=== PATIENT | female | born 1995 | race Caucasian/White ===

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

== ENCOUNTER → 2017-01-02 | Outpatient (CLI) | payer OTHER ==
[2017-01-02 16:26] LABS: PREG INTERNAL NEGATIVE QC NEG CLEAR BACKGROUND; PREG INTERNAL POSITIVE QC POS CONTROL LINE
[2017-01-02 16:35] LABS: URINE APPEARANCE TURBID (CLEAR); URINE BILIRUBIN NEG (NEG); URINE COLOR YELLOW; URINE EPITHELIAL CELL AUTO >30 /lpf (0-5); URINE NITRITE NEG (NEG); URINE SPECIFIC GRAVITY 1.026 (1.000-1.030); UROBILINOGEN NEG (NEG); ZZUR CULT IF INDIC CLEAN CATCH YES
[2017-01-02 16:46] LABS: MANUAL MICROSCOPIC REQUIRED? NO; REVIEW REQ? NO
== END | disposition home or self-care (01) ==
LOC: C.LABSPEC 15:33
PROVIDERS: ATTEND Physician Assistant
DX: N91.2 Amenorrhea, unspecified (principal); R35.0 Frequency of micturition

== ENCOUNTER → 2017-09-17 | Outpatient (CLI) | payer OTHER | END | disposition home or self-care (01) | LOC: C.LABSPEC 13:34 | PROVIDERS: ATTEND Obstetrics & Gynecology | DX: Z34.81 Encounter for supervision of other normal pregnancy, first trimester (principal) ==

== ENCOUNTER → 2017-09-28 | Outpatient (CLI) | payer OTHER ==
[~2017-09-28] MED LIST changes: +ACET-1256 PO; +CALC500C3 PO; -MELA1TAB4
[2017-09-28 15:27] LABS: BASO % 0.6 %; BASO ABS # 0.05 K/uL (0-0.2); EOS % 0.7 %; EOS ABS # 0.06 K/uL (0-0.5); HEMATOCRIT 38.3 % (37-47); HEMOGLOBIN 13.3 g/dL (12.0-16.0); IG# 0.03 K/uL (0.00-0.02); LYMPH ABS # 2.29 K/uL (1.2-3.4); MEAN CELL VOLUME 87.8 fL (80-100); MEAN CORPUSCULAR HEMOGLOBIN 30.5 pg (25-34); MEAN CORPUSCULAR HGB CONC 34.7 g/dl (32-36); MEAN PLATELET VOLUME 10.6 fL (7.4-10.4); MONO % 8.5 %; MONO ABS # 0.72 K/uL (0.11-0.59); NEUT % 62.8 %; NEUT ABS # 5.33 K/uL (1.4-6.5); PLATELET COUNT 299 K/uL (130-400); RED CELL DISTRIBUTION WIDTH CV 13.1 % (11.5-14.5); RED CELL DISTRIBUTION WIDTH SD 42.1 fL (36.4-46.3); WHITE BLOOD COUNT 8.48 K/uL (4.8-10.8)
== END | disposition home or self-care (01) ==
LOC: C.LAB1850 13:43
PROVIDERS: ATTEND Obstetrics & Gynecology
DX: Z34.81 Encounter for supervision of other normal pregnancy, first trimester (principal)

== ENCOUNTER 2017-10-01 09:24 | Day surgery (SDC) | payer OTHER ==
[~2017-10-01] VITALS: Ht 152.4 cm; Wt 70.9 kg
[~2017-10-01 09:24] MED LIST changes: -ACET-1256 PO; -CALC500C3 PO; +DOXYCYCLINE HYCLATE 100 MG CAP PO SCH; +LACTATED RINGER'S 1000ML 1,000 ML IV SCH; -PRENTAB26 PO
[2017-10-01] MEDS ORDERED: ACET-1256 PO ×2 (09:46)
[2017-10-01] MEDS ORDERED: PRENTAB26 PO ×2 (09:46)
[2017-10-01] MEDS ORDERED: CALC500C3 PO ×2 (09:46)
[2017-10-01 09:53] VITALS: BP 115/82; PULSE 100; TEMP 36.8; O2SAT 99; Ht 152.4 cm; Wt 70.9 kg
[2017-10-01] MEDS ORDERED: ONDANSETRON INJ 2 MG/ML 2 ML VIAL ONE ×2 (10:38→11:37)
[2017-10-01] MEDS ORDERED: NURSING VERBAL MED ORDER ONE (10:40)
[2017-10-01] MEDS ORDERED: PROPOFOL IV EMULSION 10 MG/ML 20 ML VIAL IV ONE (11:37)
[2017-10-01] MEDS ORDERED: LIDOCAINE HCL 2% 2 ML VIAL (20MG/ML) ONE (11:37)
[2017-10-01] MEDS ORDERED: FENTANYL CITRATE INJ 50 MCG/1 ML 2 ML VIAL ONE (11:37)
[2017-10-01] MEDS ORDERED: SUCCINYLCHOLINE CHLORIDE 20 MG/ML 10 ML VIAL IV ONE (11:37)
[2017-10-01] MEDS ORDERED: DEXAMETHASONE SOD INJ 4 MG/ML VIAL ONE (11:37)
[2017-10-01] MEDS ORDERED: MIDAZOLAM HCL 1 MG/ML 2ML VIAL ONE (11:37)
[2017-10-01] MEDS ORDERED: FENTANYL CITRATE INJ 50 MCG/1 ML 2 ML VIAL IV PRN (12:15)
[2017-10-01] MEDS ORDERED: EpHEDrine SULFATE INJ 50 MG/ML AMP IV PRN (12:15)
[2017-10-01] MEDS ORDERED: ONDANSETRON INJ 2 MG/ML 2 ML VIAL IV PRN ×2 (12:15→13:30)
[2017-10-01] MEDS ORDERED: ATROPINE SULFATE 0.1 MG/ML 5ML SYR IV PRN (12:15)
[2017-10-01] MEDS ORDERED: PROMETHAZINE HCL INJ 12.5 MG in SODIUM CHLORIDE 0.9% 50ML 50 ML IV PRN (12:15)
[2017-10-01] MEDS ORDERED: HYDROmorphone INJ 1 MG/ML SYR IV PRN (12:15)
--- NOTE | 2017-10-01 12:53 | History & Physical Bridge Note ---
H&P Re-Evaluation Bridge Note: I have examined the patient, reviewed the History & Physical and in the interval since the performance of the History & Physical I have noted the following changes of clinical significance: No changes noted The patient is aware of her metal allergy risks and desires to proceed.
[2017-10-01] MEDS ORDERED: METHYLERGONOVINE MALEATE 0.2 MG/ML AMP ONE (13:15)
[2017-10-01] MEDS ORDERED: SODIUM CHLORIDE 0.9% 1000ML 1,000 ML IV SCH (13:27)
--- NOTE | 2017-10-01 13:27 | [facility] Post Operative Brief Note ---
Immediate Operative Summary Operative Date Oct 01, 2017. Pre-Operative Diagnosis Missed Post-Operative Diagnosis Missed Procedure(s) Performed Dilation and Evacuation Surgeon Dr Aden Kalsominer Surgeon(s) None Estimated Blood Loss 5 Findings Consistent with Post-Op Diagnosis Fluids (cc crystalloids) 1000 Specimens As Per Surgeon A. Products of conception Drains None Anesthesia Type General Complication(s) none Disposition Accompanied Pt To Recover: no Disposition: Recovery Room / PACU
[2017-10-01] MEDS ORDERED: DOXYCYCLINE HYCLATE 100 MG CAP PO STA (13:29)
--- NOTE | 2017-10-01 13:29 | Discharge Instructions ---
Discharge Instructions Date of Service Oct 01, 2017. Admission Reason for Admission: Missed Discharge Discharge Diagnosis / Problem: after surgery Discharge Goals Goal(s): Routine recovery after surgery Activity Recommendations Activity Limitations: as noted below . Instructions / Follow-Up Instructions / Follow-Up ACTIVITY RECOMMENDATIONS: * Avoid tampons, douching, hot tubs, pools, and intercourse until bleeding has stopped. * May shower as usual. * No strenuous activity for 24-48 hours. After 24-48 hours, you may do anything you feel like doing (driving and sports are okay). SPECIAL CARE INSTRUCTIONS: Special Diet: * Mild nausea may occur in the immediate post-operative period. * Take clear liquids such as tea, cola or bouillon until all nausea has subsided; you may then resume your normal diet. Special Care: * Light bleeding and vaginal spotting can last from a few days to 3-4 weeks. Call your doctor if bleeding becomes heavier than the heaviest part of your period. * Check your temperature twice a day for one week. If it goes above 100.4 degrees Fahrenheit (38.0 Celsius), notify your doctor. * Call your doctor's office for an appointment for 2-4 weeks after your surgery. FOLLOW-UP VISIT: Call your doctor's office for an appointment for 6 weeks after your surgery. Take the antibiotic that you picked up as directed until done. Take the first dose of the methergine orally at 6pm tonight x 3 total doses about every 6 hours. Current Hospital Diet Patient's current hospital diet: Discharge Diet Recommended Diet: Regular Diet Procedures Procedures Performed: Dilation and Evacuation Pending Studies Studies pending at discharge: yes List of pending studies: pathology Medical Emergencies . Who to Call and When: Medical Emergencies: If at any time you feel your situation is an emergency, please call 911 immediately. . Non-Emergent Contact Non-Emergency issues call your: Biodiesel Processing Technician . . "Provider Documentation" section prepared by Nithya Aden. . VTE Core Measure Inpt VTE Proph given/why not?: Treatment not indicated
[2017-10-01] MEDS ORDERED: IBUPROFEN 600 MG TAB PO PRN (13:30)
[2017-10-01] MEDS ORDERED: OXYCODONE/ACETAMINOPHEN 5-325 TAB PO PRN ×2 (13:30)
[2017-10-01] MEDS ORDERED: KETOROLAC TROMETHAMINE 30 MG/ML VIAL IV. PRN (13:30)
[2017-10-01] MEDS ORDERED: ROCURONIUM BROMIDE 10 MG/ML 5 ML VIAL IV ONE (13:46)
--- NOTE | 2017-10-01 14:09 | Anesthesiology Progress Note ---
Anesthesia Post Op Note Date & Time Oct 01, 2017 at 14:09 Vital Signs Pain Intensity: 0 Vital Signs Past 12 Hours Date Time Temp Pulse Resp B/P (MAP) Pulse Ox O2 Delivery O2 Flow Rate FiO2 10/01/17 14:00 90 15 112/64 100 Oxymask 10 10/01/17 13:50 94 18 112/66 100 Oxymask 10 10/01/17 13:42 36.4 102 18 112/65 100 Oxymask 10 10/01/17 09:53 36.8 100 18 115/82 (93) 99 Room Air Notes Mental Status: alert / awake / arousable, participated in evaluation Pt Amnestic to Procedure: Yes Nausea / Vomiting: adequately controlled Pain: adequately controlled Airway Patency, RR, SpO2: stable & adequate BP & HR: stable & adequate Hydration State: stable & adequate Anesthetic Complications: no major complications apparent
[2017-10-01 14:25] VITALS: BP 103/57; PULSE 85; TEMP 37.5; O2SAT 99
--- NOTE | 2017-10-01 14:32 | OPERATIVE REPORT ---
DATE OF OPERATION: 10/01/2017 PREOPERATIVE DIAGNOSIS: Missed . POSTOPERATIVE DIAGNOSIS: Same. PROCEDURE: Dilatation, evacuation and curettage. SURGEON: Dr. Nithya Aden. OUTSIDE SALESPERSON: None. IV FLUIDS: 1000 mL. ESTIMATED BLOOD LOSS: 5 mL. ANESTHESIA: General. FINDINGS: Uterus sounds to 12 cm preprocedure, small and mobile and sounds to 8-9 cm postprocedure. Moderate products of conception. INDICATIONS: A 21-year-old 2, para 1-0-0-1 with an 8 week 6 day missed , who presents for surgical management. She is aware of her treatment options and desires to proceed. DESCRIPTION OF PROCEDURE: The patient was taken to the operating room and identified. After adequate general anesthesia was obtained, she was placed in dorsal lithotomy position, prepped and draped in the usual sterile fashion. Her bladder was drained under sterile conditions for clear urine. A weighted speculum and anterior retractor were placed to visualize the cervix, which was grasped on its anterior lip with an Allis clamp. The cervix was sequentially dilated using Hegar dilators to 23. An 8-mm suction curette was gently placed through the cervical os into the uterine cavity after the uterus had been sounded. The uterus was cleared of its contents in multiple passes. A curettage was performed to a gritty consistency using medium curet and the uterus was cleared of its contents once again. IM Methergine 0.2 mg was administered by anesthesia per my order. At this point, all the vaginal instruments were removed. The procedure was terminated. The patient was returned to the supine position. She was awoken from anesthesia and transferred to the recovery room in stable condition. All sponge, lap and needle counts were correct x2. I attest to the content of the Intraoperative Record and any orders documented therein. Any exception s are noted below.
[2017-10-01] MEDS ORDERED: KETOROLAC TROMETHAMINE 30 MG/ML VIAL ONE (14:50)
[2017-10-01 14:55] VITALS: BP 100/64; PULSE 100; TEMP 36.7; O2SAT 98
[2017-10-01 15:25] VITALS: BP 103/64; PULSE 97; TEMP 36.7; O2SAT 97
== END 2017-10-01 15:38 | disposition home or self-care (01) ==
LOC: C.ACU 09:24
PROVIDERS: ATTEND Obstetrics & Gynecology
DX: O02.1 Missed abortion (principal); Z91.040 Latex allergy status; Z88.0 Allergy status to penicillin; Z91.018 Allergy to other foods; Z98.890 Other specified postprocedural states; Z82.5 Family history of asthma and other chronic lower respiratory diseases; Z84.89 Family history of other specified conditions

== ENCOUNTER → 2018-04-08 | Outpatient (CLI) | payer OTHER ==
[~2018-04-08] MED LIST changes: +ACET-1256 PO; +CALC500C3 PO; -DOXYCYCLINE HYCLATE 100 MG CAP PO SCH; -LACTATED RINGER'S 1000ML 1,000 ML IV SCH; +PRENTAB26 PO
== END | disposition home or self-care (01) ==
LOC: C.LABSPEC 14:05
PROVIDERS: ATTEND Obstetrics & Gynecology
DX: Z34.81 Encounter for supervision of other normal pregnancy, first trimester (principal)

== ENCOUNTER → 2018-04-15 | Outpatient (CLI) | payer OTHER ==
[2018-04-15 13:17] LABS: BASO % 0.7 %; BASO ABS # 0.05 K/uL (0-0.2); EOS % 0.7 %; EOS ABS # 0.05 K/uL (0-0.5); HEMATOCRIT 37.8 % (37-47); HEMOGLOBIN 13.4 g/dL (12.0-16.0); IG# 0.01 K/uL (0.00-0.02); LYMPH ABS # 2.14 K/uL (1.2-3.4); MEAN CELL VOLUME 86.1 fL (80-100); MEAN CORPUSCULAR HEMOGLOBIN 30.5 pg (25-34); MEAN CORPUSCULAR HGB CONC 35.4 g/dl (32-36); MEAN PLATELET VOLUME 10.8 fL (7.4-10.4); MONO % 5.6 %; MONO ABS # 0.41 K/uL (0.11-0.59); NEUT % 63.9 %; NEUT ABS # 4.72 K/uL (1.4-6.5); PLATELET COUNT 302 K/uL (130-400); RED CELL DISTRIBUTION WIDTH CV 13.3 % (11.5-14.5); WHITE BLOOD COUNT 7.38 K/uL (4.8-10.8)
== END | disposition home or self-care (01) ==
LOC: C.LAB1850 11:41
PROVIDERS: ATTEND Obstetrics & Gynecology
DX: Z34.81 Encounter for supervision of other normal pregnancy, first trimester (principal)

== ENCOUNTER 2018-11-15 05:19 | Inpatient (IN) ==
--- NOTE | 2018-11-14 15:37 | Anesthesiology Consultation ---
Date of Service November 14, 2018 Assessment & Plan (1) Encounter for pre-operative examination: - Per OB, preop labs to be done AM day of c/s. No labs at PAT. Chart Review Chart Review: Acceptable Risk for Surgery and Patient seen in Pre Admission Testing Teaching & Discussion Pre-Anesthesia Teaching/Discussion Notes: Instructed NPO after midnight before surgery,except medications with 15 cc of water. Medication instructions provided according to the [facility] guidelines. History Surgery Operation Date: 11/15/18 07:30 Proposed Procedures p Section in LD - Ally Wolf MD Height/Weight Height: 5 ft Weight: 88 kg Allergies Allergy/AdvReac Type Severity Reaction Status Date / Time latex Allergy Mild itching Verified 11/12/18 11:55 WITH GLOVES strawberry Allergy Mild RASH Verified 11/12/18 11:56 Penicillins AdvReac Unknown SEVERE Verified 11/12/18 11:56 VOMITING METAL Allergy Intermediate SKIN Uncoded 11/12/18 11:56 RASH-WITH JEWELRY Medications Home Medications Medication Instructions Recorded Confirmed Last Taken vit no.[id number] 1 tab PO HS 11/05/18 11/12/18 11/04/18 20:00 [ Vitamin] acetaminophen [Tylenol Extra 1,000 mg PO Q6H PRN 11/12/18 11/12/18 Unknown Strength] calcium carbonate [Tums] 400 mg PO BID PRN 11/12/18 11/12/18 Unknown hydrocortisone 1 applic TOPICAL TID PRN 11/12/18 11/12/18 Unknown Past Medical History Medical History Depression with anxiety (~11/05/10) NO MEDS DURING History of epidural anesthesia VAGINAL DELIVERY History of fernandez (~03/31/16) NO MEDS DURING Migraine HX Past Surgical History Surgical History History of facial surgery X 3 (BIRTHMARK REMOVAL) Past Anesthesia History No Hx of Anesthesia Complications and No Family Hx of Anesthesia Complications History of PONV No Motion Sickness Screening History of Motion Sickness: Yes Social History Smoking Status: Never smoker Do You Dip or Chew Tobacco: No Hx Alcohol Use: No Hx Substance Use: No substance use type: does not use Exercise / Class Metabolic Activity III < 4 Walking/Shop/Light housework Review of Systems Patient reports LBP and reflux associated with . Patient denies chest pain, shortness of breath, cough, wheezing, palpitations. Physical Exam Vital Signs VITALS BP 109/76 P 110 TEMP 98.7 SP02 96%RA RESP 20 PHYSICAL Full neck and c-spine range of motion. Full TMJ range of motion. TMD 3.5 finger breaths Mallampati Score 2 Dentition: chipped side tooth per patient, upper permanent retainer Lungs: clear throughout to auscultation Cardiac: regular rate and rhythm, no murmurs noted Spine: normal Extremities: no edema
--- NOTE | 2018-11-14 15:40 | PAT Medication Instructions ---
Medication Instructions Date of Service November 14, 2018 Home Medications vit no.[id number] 1 tab PO HS acetaminophen [Tylenol Extra 1,000 mg PO Q6H PRN calcium carbonate [Tums] 400 mg PO BID PRN hydrocortisone 1 applic TOPICAL TID PRN DO NOT take the morning of surgery calcium carbonate [Tums] 400 mg PO BID PRN hydrocortisone 1 applic TOPICAL TID PRN Take morning of surgery With a small sip of water, OTHERWISE NOTHING TO EAT OR DRINK AFTER MIDNIGHT: acetaminophen [Tylenol Extra 1,000 mg PO Q6H PRN (okay to take up to 4 hours prior to surgery if needed) Other Notes If you have any questions please call us at [phone] or [phone] or [phone] or [phone]
[2018-11-15] MEDS ORDERED: LACTATED RINGER'S 1,000 ML IV SCH ×2 (05:30→07:15)
[2018-11-15 05:59] LABS: Basophils # (auto) 0.03 K/uL (0-0.2); Basophils % (auto) 0.3 %; Eosinophils # (auto) 0.08 K/uL (0-0.5); Eosinophils % (auto) 0.9 %; Hematocrit (blood only) 34.1 % (37-47); Hemoglobin 11.4 g/dL (12.0-16.0); Immature Granulocytes # (auto) 0.03 K/uL (0.00-0.02); Immature Granulocytes % (auto) 0.3 %; Lymphocytes # (auto) 2.15 K/uL (1.2-3.4); Lymphocytes % (auto) 24.9 %; Mean Corpuscular Volume 88.3 fL (80-100); Mean Platelet Volume 12.7 fL (7.4-10.4); Monocytes # (auto) 0.84 K/uL (0.11-0.59); Monocytes % (auto) 9.7 %; Neutrophils # (auto) 5.52 K/uL (1.4-6.5); Neutrophils % (auto) 63.9 %; Platelet Count 187 K/uL (130-400); RDW Coefficient of Variation 13.6 % (11.5-14.5); RDW Standard Deviation 44.1 fL (36.4-46.3); Red Blood Count 3.86 M/uL (4.2-5.4); White Blood Count 8.65 K/uL (4.8-10.8)
[2018-11-15] MEDS ORDERED: CITRIC ACID/SODIUM CITRATE 15 ML UDC PO SCH (06:00)
[2018-11-15] MEDS ORDERED: CEFAZOLIN 2000MG 2,000 MG/15 ML SYR IV SCH (06:00)
[2018-11-15 06:07] LABS: Mean Corpuscular Hgb Conc 33.4 g/dL (32-36)
[2018-11-15] MEDS: LACTATED RINGER'S 1,000 ML IV SCH ×2 (07:00→13:55)
[2018-11-15] MEDS ORDERED: OXYTOCIN 30 UNITS/500 ML BAG IV PRN ×2 (07:10)
[2018-11-15] MEDS ORDERED: LACTATED RINGER'S 1,000 ML IV PRN ×3 (07:10→13:57)
--- NOTE | 2018-11-15 07:16 | Labor Progress Brief Note ---
Date of Service November 15, 2018 Subjective presenting at 39wk for planned C/S due to breech fetus. Found to be vertex by ultrasound on admission, with FHT Cat 1 and cervix /hi/soft/post. Will convert plan to IOL per patient wishes to attempt vaginal delivery (she does have one prior VAVD). GBS neg, Rh pos, otherwise uncomplicated. Assessment & Plan (1) Unstable lie: For IOL due to currently vertex presentation. Will begin with 25mcg PV cytotec. R/B/A discussed with pt and FOB and questions answered. Fetus number: single or unspecified fetus Qualified Code(s): O32.0XX0 - Maternal care for unstable lie, not applicable or unspecified Physical Exam Vital Signs (Past 24 Hours): Last Vital Signs Temp 36.8 C 11/15/18 05:34 Pulse 113 H 11/15/18 05:34 Resp 20 11/15/18 05:34 BP 126/86 11/15/18 05:34 Physical Exam: Gen NAD Abd Gravid, NT US: Fetus in vertex presentation Cvx: /hi/soft/post FHT Cat 1 [place] quiet
[2018-11-15] MEDS ORDERED: miSOPROStol 25 MCG TAB PV ONE (07:30)
--- NOTE | 2018-11-15 07:43 | History & Physical Report ---
Date of Service November 15, 2018 Assessment & Plan (1) : -Fetus currently category 1 tracing. We will continue to monitor. -Currently 1 cm dilated. We will start oxytocin per regular protocol. Cytotec given. -Vitals currently within normal limits. We will continue to monitor. - hemorrhage risk considered at low risk. We will collect a CBC, type and screen and will continue to monitor. -Plan for . O+, Rubella Immune, GBS - History of Present Illness Primary Care Provider: Aaron Mosquera MD DATE OF ADMISSION: 11/15/2018 BRIEF HISTORY: 23 y/o , currently at 39 weeks 1 days gestational age with KEVIN of 11/21/2018 by LMP consistent with first trimester ultrasound. At time of admission, the patient was denying any regular contractions, vaginal bleeding, leakage of fluid, and reported normal movement. COURSE: The patient presented for care at approximately 8 weeks' gestational age. She has been normotensive throughout. She has negative proteinuria, negative glucosuria, total weight gain for the is approximately 30 pounds. COMPLICATIONS: None. LABS: Blood type O positive, antibody screen negative, RPR no nreactive, rubella immune, hep B surface antigen negative, HIV negative, chlamydia negative, gonorrhea negative. Anatomy scan normal and complete. Cell free DNA within normal limits. Hep group B strep negative. GYNECOLOGIC HISTORY: LMP 02/14/2018, age of menarche 11. The patient reports regular 28 day cycles with normal duration and quantity of menses. Denies any history of sexually transmitted infections. PAST MEDICAL HISTORY: Significant for anxiety/depression (on no meds), otherwise unremarkable. PAST SURGICAL HISTORY: Significant for D and C for missed in 2018. MEDICATIONS: 1. Hydrocortisone 2.5% cream 2. vitamin 3) Tums prn 4) Tylenol tabs prn ALLERGIES: 1. PCN (N/V) 2. Latex SOCIAL HISTORY: The patient denies tobacco, alcohol use. Marijuana use prior to , but never consistently. FAMILY HISTORY: DM in FOB's side (Mother/Father). Allergies Allergy/AdvReac Type Severity Reaction Status Date / Time latex Allergy Mild itching Verified 11/12/18 11:55 WITH GLOVES strawberry Allergy Mild RASH Verified 11/12/18 11:56 Penicillins AdvReac Unknown SEVERE Verified 11/12/18 11:56 VOMITING METAL Allergy Intermediate SKIN Uncoded 11/12/18 11:56 RASH-WITH JEWELRY Home Medications Home Medications Medication Instructions Recorded Confirmed Type vit no.[id number] 1 tab PO HS 11/05/18 11/12/18 History [ Vitamin] acetaminophen [Tylenol Extra 1,000 mg PO Q6H PRN 11/12/18 11/12/18 History Strength] calcium carbonate [Tums] 400 mg PO BID PRN 11/12/18 11/12/18 History hydrocortisone 1 applic TOPICAL TID PRN 11/12/18 11/12/18 History Past Med/Surg History Medical History Migraine HX Depression with anxiety (~11/05/10) NO MEDS DURING History of epidural anesthesia VAGINAL DELIVERY History of fernandez (~03/31/16) NO MEDS DURING Surgical History History of facial surgery X 3 (BIRTHMARK REMOVAL) Social History Preferred Language: Nepali Communication Ability: Effective Police Magistrate Required: No Beliefs That Will Affect Care: None marital status: Current Living Situation: Family Other Information That Helps Us Care for You: No Feels Safe at Home: Yes Safety Concerns: Feels Safe At This Time Smoking Status: Never smoker Hx Alcohol Use: No Hx Substance Use: No Review of Systems All systems reviewed & are unremarkable except as noted in HPI & below Physical Exam Vital Signs (Past 24 Hours): Last Vital Signs Temp 36.8 C 11/15/18 05:34 Pulse 113 H 11/15/18 05:34 Resp 20 11/15/18 05:34 BP 126/86 11/15/18 05:34 Constitutional: WD/WN, vitals as above Eyes: PERRL, conjunctivae normal, anicteric sclerae ENMT: external ear and nose normal, oropharynx normal Respiratory: normal respiratory effort, lungs clear to auscultation Cardiovascular: RRR, no murmur, no edema Gastrointestinal (Abdomen): Soft, nontender, gravid Skin: no rashes, warm and dry Psychiatric: A+Ox3, euthymic affect Genitourinary: 1 cm dilated, -3 station Results & Data Laboratory Results Laboratory Results - last 24 hr 11/15/18 11/15/18 05:46 05:46 WBC 8.65 RBC 3.86 L Hgb 11.4 L Hct 34.1 L MCV 88.3 MCH 29.5 MCHC 33.4 RDW Std Deviation 44.1 RDW Coeff of Umesh 13.6 Plt Count 187 MPV 12.7 H Immature Gran % (Auto) 0.3 Neut % (Auto) 63.9 Lymph % (Auto) 24.9 [place] % (Auto) 9.7 Eos % (Auto) 0.9 Baso % (Auto) 0.3 Immature Gran # (Auto) 0.03 H Neut # (Auto) 5.52 Lymph # (Auto) 2.15 [place] # (Auto) 0.84 H Eos # (Auto) 0.08 Baso # (Auto) 0.03 Blood Type O Positive Antibody Screen NEGATIVE Medications Administered Current Inpatient Medications Lactated Ringer's (Lr) 1,000 mls @ 125 mls/hr IV .Q8H [facility] Stop: 12/15/18 06:17 Last Admin: 11/15/18 07:00 Dose: 125 mls/hr Documented by: Lactated Ringer's (Lr) 1,000 mls @ 999 mls/hr IV .Q1H1M PRN PRN Reason: (Pre-Anesthesia) Stop: 12/15/18 07:09 Lactated Ringer's (Lr) 1,000 mls @ 999 mls/hr IV .Q1H1M PRN PRN Reason: Tachysystole Stop: 11/17/18 07:09 Lactated Ringer's (Lr) 1,000 mls @ 125 mls/hr IV .Q8H [facility] Stop: 11/17/18 07:14 Oxytocin (Pitocin) 30 units in 500 mls @ 1 mls/hr IV .Q24H PRN; Protocol PRN Reason: Labor Induction/Augmentation Stop: 11/17/18 07:09 Oxytocin (Pitocin) 30 units in 500 mls @ 333.333 mls/hr IV .Q1H30M PRN; Protocol PRN Reason: Bleeding Control Stop: 12/15/18 07:09 Code Status & VTE Plan Code Status FULL Resident Activity Tracking Resident Involvement: Resident Care Provided Care Provided: OB Delivery
[2018-11-15] MEDS ORDERED: COUGH DROP (SUGAR FREE) LOZ 24 LOZ/1 BOX BUCCAL ONE (09:32)
--- NOTE | 2018-11-15 12:16 | Labor Progress Brief Note ---
Date of Service November 15, 2018 Subjective Delayed note. Patient felt uncomfortable contractions with cytotec. Assessment & Plan (1) Unstable lie: IOL - move to pitocin. Epidural on request. Fetus number: single or unspecified fetus Qualified Code(s): O32.0XX0 - Maternal care for unstable lie, not applicable or unspecified Physical Exam Vital Signs (Past 24 Hours): Last Vital Signs Temp 36.9 C 11/15/18 11:55 Pulse 103 H 11/15/18 09:28 Resp 18 11/15/18 11:55 BP 133/77 11/15/18 09:28 Physical Exam: FHT Cat 1 Irregular ctx, as close at times as 3min. Cvx 2/th/-2/soft/ant AROM clear
[2018-11-15 12:21] LABS: Appearance Urine Cloudy (Clear); Bacteria Urine Automated Negative (Negative); Bilirubin Urine Negative (Negative); Blood Urine Negative (Negative); Cast Urine Automated 0 /lpf (0-5); Color Urine Yellow; Epithelial Cell Urine Auto >30 /lpf (0-5); Glucose Urine UA Negative (Negative); Ketones Urine Negative (Negative); Leukocyte Esterase Urine Negative (Negative); Nitrite Urine Negative (Negative); Protein Urine Negative (Negative); Specific Gravity Urine 1.019 (1.000-1.030); Urobilinogen Urine Negative (Negative)
[2018-11-15] MEDS ORDERED: BUPIVACAINE 0.25% 30 ML VIAL ONE (12:26)
[2018-11-15] MEDS ORDERED: ePHEDrine sulfate 50 MG/ML AMP ONE (12:26)
[2018-11-15] MEDS ORDERED: fentaNYL 2MCG/ML ROPIV 1.25MG/ML 100 ML BAG EPI ONE (12:27)
[2018-11-15] MEDS ORDERED: fentaNYL citrate 100 MCG/2 ML VIAL ONE (12:27)
[2018-11-15 12:41] LABS: Calcium Oxalate Crystals Urine Present (None Prsent)
--- NOTE | 2018-11-15 13:22 | Anesthesiology Consultation ---
Date of Service November 15, 2018 Assessment & Plan Chart Review Chart Review: Patient NOT seen in Pre Admission Testing and Acceptable Risk for Labor Epidural Consults Requested none ASA ASA2 Proposed Anesthesia Anesthesia Type: Labor Epidural Risk / Benefits Reviewed With: PT / POA / Parent / Guardian, Accepts Plan and Informed Consent Obtained NPO Date Last Intake of Fluids: 11/14/18 Time Last Intake of Fluids: 23:30 Date Last Intake of Solids: 11/14/18 Time Last Intake of Solids: 23:30 History Surgery Operation Date: 11/15/18 07:30 Proposed Procedures p Section in LD - Ally Wolf MD Height/Weight Height: 5 ft Weight: 88 kg Allergies Allergy/AdvReac Type Severity Reaction Status Date / Time latex Allergy Mild itching Verified 11/12/18 11:55 WITH GLOVES strawberry Allergy Mild RASH Verified 11/12/18 11:56 Penicillins AdvReac Unknown SEVERE Verified 11/12/18 11:56 VOMITING METAL Allergy Intermediate SKIN Uncoded 11/12/18 11:56 RASH-WITH JEWELRY Medications Home Medications Medication Instructions Recorded Confirmed Last Taken vit no.[id number] 1 tab PO HS 11/05/18 11/12/18 11/04/18 20:00 [ Vitamin] acetaminophen [Tylenol Extra 1,000 mg PO Q6H PRN 11/12/18 11/12/18 Unknown Strength] calcium carbonate [Tums] 400 mg PO BID PRN 11/12/18 11/12/18 Unknown hydrocortisone 1 applic TOPICAL TID PRN 11/12/18 11/12/18 Unknown Active Medications Generic Name Dose Route Start Last Admin Trade Name Garry PRN Reason Stop Dose Admin Lactated Ringer's 1,000 mls @ 125 mls/hr 11/15/18 06:18 11/15/18 13:55 Lr IV 12/15/18 06:17 125 mls/hr .Q8H ASHIA Administration Lactated Ringer's 1,000 mls @ 999 mls/hr 11/15/18 07:10 11/15/18 13:54 Lr IV 12/15/18 07:09 Infused .Q1H1M PRN Titration (Pre-Anesthesia) Oxytocin 30 units in 500 mls @ 1 mls/hr 11/15/18 07:10 11/15/18 11:51 Pitocin IV 11/17/18 07:09 0.06 units/hr .Q24H PRN 1 mls/hr Labor Induction/Augmentation Administration Protocol 0.06 UNITS/HR Past Medical History Medical History Migraine HX Depression with anxiety (~11/05/10) NO MEDS DURING History of epidural anesthesia VAGINAL DELIVERY History of fernandez (~03/31/16) NO MEDS DURING Past Surgical History Surgical History History of facial surgery X 3 (BIRTHMARK REMOVAL) Past Anesthesia History No Hx of Anesthesia Complications and No Family Hx of Anesthesia Complications History of PONV No Motion Sickness Screening History of Motion Sickness: Yes Social History Smoking Status: Never smoker Do You Dip or Chew Tobacco: No Hx Alcohol Use: No Alcohol Intake Frequency Comment: RARELY-WHEN NOT Hx Substance Use: No substance use type: does not use Exercise / Class Metabolic Activity III < 4 Walking/Shop/Light housework Physical Exam Vital Signs Last Vital Signs Temp 36.9 C 11/15/18 11:55 Pulse 102 H 11/15/18 13:17 Resp 18 11/15/18 11:55 BP 133/97 11/15/18 13:00 Pulse Ox 98 11/15/18 13:17 Constitutional + obese (Gravid uterus) ENMT Mouth: no TMJ abnormality and oral opening not small Thyromental Distance: < 3.5 Finger Breadths Mallampati Class: II Neck normal visual inspection; neck extension not limited Respiratory normal respiratory effort, lungs clear to auscultation normal respiratory effort Auscultation: lungs clear to auscultation bilaterally Cardiovascular Rate/Rhythm: regular rate and regular rhythm Heart Sounds: no murmur Psychiatric A+Ox3, euthymic affect Orientation: alert and oriented x 3 Testing Laboratory Results 11/15/18 05:46 Blood Type O Positive 11/15/18 05:46 Antibody Screen NEGATIVE 11/15/18 05:46 Urine Color Yellow 11/15/18 05:30 Urine Appearance Cloudy (Clear) H 11/15/18 05:30 Urine pH 6.0 (4.5-7.5) 11/15/18 05:30 Ur Specific [place] 1.019 (1.000-1.030) 11/15/18 05:30 Urine Protein Negative (Negative) 11/15/18 05:30 Urine Glucose (UA) Negative (Negative) 11/15/18 05:30 Urine Ketones Negative (Negative) 11/15/18 05:30 Urine Nitrite Negative (Negative) 11/15/18 05:30 Ur Leukocyte Esterase Negative (Negative) 11/15/18 05:30 Urine WBC (Auto) 1-5 /hpf (0-5) 11/15/18 05:30 Urine RBC (Auto) 5-10 /hpf (0-4) H 11/15/18 05:30 U Hyaline Cast (Auto) 0 /lpf (0-5) 11/15/18 05:30 U Epithel Cells (Auto) >30 /lpf (0-5) H 11/15/18 05:30 Urine Bacteria (Auto) Negative (Negative) 11/15/18 05:30
[2018-11-15] MEDS ORDERED: ONDANSETRON INJ 2 MG/ML 2 ML VIAL IV PRN (13:57)
[2018-11-15] MEDS ORDERED: NALBUPHINE HCL INJ 10 MG/ML AMP IV PRN (13:57)
[2018-11-15] MEDS ORDERED: DiphenhydrAMINE HCL 50 MG/ML VIAL IV PRN (13:57)
[2018-11-15] MEDS ORDERED: ePHEDrine sulfate 50 MG/ML AMP IV PRN (13:57)
[2018-11-15] MEDS ORDERED: fentaNYL 2MCG/ML ROPIV 1.25MG/ML 100 ML BAG EPI PRN (13:57)
[2018-11-15] MEDS ORDERED: NALOXONE HCL 1 MG in SODIUM CHLORIDE 0.9% 1000ML 1,000 ML IV PRN (13:57)
[2018-11-15] MEDS ORDERED: NALOXONE HCL 0.4 MG/1 ML VIAL/CARP IV PRN (13:57)
--- NOTE | 2018-11-15 17:29 | Labor Progress Brief Note ---
Date of Service November 15, 2018 Subjective Comfortable with epidural Assessment & Plan (1) Unstable lie: Continue IOL Fetus number: single or unspecified fetus Qualified Code(s): O32.0XX0 - Maternal care for unstable lie, not applicable or unspecified Physical Exam Vital Signs (Past 24 Hours): Last Vital Signs Temp 36.9 C 11/15/18 15:40 Pulse 116 H 11/15/18 17:25 Resp 18 11/15/18 17:17 BP 118/71 11/15/18 17:25 Pulse Ox 96 11/15/18 17:22 Physical Exam: 5/100/+1 FHT Cat 1 [place] Q2min
--- NOTE | 2018-11-15 19:36 | Procedure Note ---
Vaginal Delivery Summary Date of Service November 15, 2018 Supervising Physician Co-Signing Physician Notes Patient pushed to deliver viable infant in OA position. A triple nuchal cord was noted and the baby delivered through this, and the loops were then reduced, after which the infant was placed on the maternal abdomen. Cord was doubly clamped and cut and the baby was taken to the warmer for attention. A clitoral laceration was identified with laceration of an arteriole which did not become hemostatic after 3 minutes of direct pressure. Therefore a figure of eight suture of 4-0 vicryl was used to ligate the bleeding clitoral arteriole. There were no other lacerations requiring repair. The placenta delivered spontaneously, intact and with a 3VC. Fundus was firm and lochia minimal after delivery.
[2018-11-15] MEDS ORDERED: HYDROCORTISONE ACETATE 25 MG SUPP PR PRN (19:38)
[2018-11-15] MEDS ORDERED: SUPERCREAM 0.870% 15 GM JAR EXT PRN (19:38)
[2018-11-15] MEDS ORDERED: BISACODYL 10 MG SUPP PR PRN (19:38)
[2018-11-15] MEDS ORDERED: ACETAMINOPHEN 325 MG TAB PO PRN (19:38)
[2018-11-15] MEDS ORDERED: DIPHTHERIA/TETANUS/PERTUSSIS 0.5 ML SYR/VIAL IM ONE (19:38)
[2018-11-15] MEDS ORDERED: BENZOCAINE 20% AER SPR 82.5 GM CAN EXT PRN (19:38)
--- NOTE | 2018-11-15 20:11 | Anesthesia Procedure Note ---
Date of Service November 15, 2018 Anesthesia Post Epidural Note Vital Signs Vital Signs: Temp Pulse Resp BP Pulse Ox 37.1 C 108 H 18 133/80 98 11/15/18 18:55 11/15/18 20:06 11/15/18 18:55 11/15/18 20:06 11/15/18 19:22 Pain Intensity Abdomen: Pain Intensity: 3 Notes Mental Status: alert / awake / arousable Patient Amnestic to Procedure: No Nausea / Vomiting: adequately controlled Pain: adequately controlled Airway Patency, RR, SpO2: stable & adequate BP & HR: stable & adequate Hydration State: stable & adequate Anesthetic Complications: no major complications apparent Epidural: Removed without complications and With tip intact Notes: Pt doing well. No complaints. Epidural site looks dry/clean/intact without signs of edema or erythema.
[2018-11-15] MEDS: IBUPROFEN 600 MG TAB PO PRN (21:17)
[2018-11-15] MEDS: OXYCODONE/ACETAMINOPHEN 5mg/325mg TAB PO PRN ×2 (23:35→23:44)
[2018-11-16] MEDS ORDERED: COUGH DROP (SUGAR FREE) LOZ 24 LOZ/1 BOX BUCCAL ONE (04:09)
--- NOTE | 2018-11-16 06:25 | Obstetrical Progress Note ---
Date of Service <Latrell Aden - Last Filed: 11/16/18 06:25> November 16, 2018 Assessment & Plan <Latrell Aden DO - Last Filed: 11/16/18 06:25> (1) (spontaneous vaginal delivery): -vital signs reviewed and WNL -last Hgb 11.4 -Blood type: O+, GBS-, Rubella Immune -pt doing well clinically -encourage ambulation, monitor and control pain with motrin tylenol, cont regular diet, monitor lochia -cont encourage breast feeding Subjective <Latrell Aden DO - Last Filed: 11/16/18 06:25> 23 y/o PPD1 found in bed this morning in NAD. Reports no acute overnight events. Pt states that she has no pain other than appropriate soreness. Tolerating PO intake without N/V. Able to ambulate without issue. She is breast feeding without issue. No issues with voiding, no BM yet. No other acute concerns or complaints. Review of Systems All systems reviewed & are unremarkable except as noted in HPI & below Physical Exam <Latrell Aden - Last Filed: 11/16/18 06:25> Vital Signs (Past 24 Hours) Last Vital Signs Temp 37.1 C 11/15/18 23:00 Pulse 102 H 11/16/18 04:15 Resp 18 11/16/18 04:15 BP 125/82 11/16/18 04:15 Pulse Ox 98 11/15/18 19:22 Constitutional WD/WN, vitals as above Eyes PERRL, conjunctivae normal, anicteric sclerae ENMT external ear and nose normal, oropharynx normal Respiratory normal respiratory effort, lungs clear to auscultation Cardiovascular RRR, no murmur, no edema Gastrointestinal (Abdomen) mild abd tenderness Skin no rashes, warm and dry Psychiatric A+Ox3, euthymic affect Lymphatic no LE swelling, no calf tenderness Results & Data <Latrell Aden - Last Filed: 11/16/18 06:25> Laboratory Results Laboratory Results - last 24 hr 11/15/18 11/15/18 05:30 05:46 Urine Color Yellow Urine Appearance Cloudy H Urine pH 6.0 Ur Specific [place] 1.019 Urine Protein Negative Urine Glucose (UA) Negative Urine Ketones Negative Urine Blood Negative Urine Nitrite Negative Urine Bilirubin Negative Urine Urobilinogen Negative Ur Leukocyte Esterase Negative Urine WBC (Auto) 1-5 Urine RBC (Auto) 5-10 H U Hyaline Cast (Auto) 0 U Epithel Cells (Auto) >30 H Urine Bacteria (Auto) Negative Urine Crystals Not Reportable Calcium Oxalate Crystal Present H Blood Type O Positive Antibody Screen NEGATIVE Medications Administered Current Inpatient Medications Acetaminophen (Tylenol) 650 mg PO Q6H PRN PRN Reason: Pain/MOY/Fever Stop: 12/15/18 19:37 Benzocaine (Dermoplast Pain Relieving [place]) 1 appln EXT PRN PRN PRN Reason: Perineal Discomfort Stop: 12/15/18 19:37 Last Admin: 11/15/18 23:35 Dose: 82.5 appln Documented by: Bisacodyl (Dulcolax) 10 mg OR DAILY PRN PRN Reason: No BM on 2nd post- day Stop: 12/15/18 19:37 Cocaine HCl (Supercream 0.870%) 1 gm EXT BID PRN PRN Reason: Hemorrhoidal Inflammation Stop: 11/29/18 19:37 Hydrocortisone (Anusol Hc) 25 mg OR BID PRN PRN Reason: Hemorrhoidal Inflammation Stop: 12/15/18 19:37 Lactated Ringer's (Lr) 1,000 mls @ 125 mls/hr IV .Q8H [facility] Stop: 12/15/18 06:17 Last Infusion: 11/15/18 19:35 Dose: 0 mls/hr Documented by: Lactated Ringer's (Lr) 1,000 mls @ 999 mls/hr IV .Q1H1M PRN PRN Reason: (Pre-Anesthesia) Stop: 12/15/18 07:09 Last Infusion: 11/15/18 13:54 Dose: Infused Documented by: Lactated Ringer's (Lr) 1,000 mls @ 999 mls/hr IV .Q1H1M PRN PRN Reason: Tachysystole Stop: 11/17/18 07:09 Lactated Ringer's (Lr) 1,000 mls @ 125 mls/hr IV .Q8H [facility] Stop: 11/17/18 07:14 Oxytocin (Pitocin) 30 units in 500 mls @ 333.333 mls/hr IV .Q1H30M PRN; Protocol PRN Reason: Bleeding Control Stop: 12/15/18 07:09 Ibuprofen (Motrin) 600 mg PO Q4H PRN PRN Reason: Pain/MOY/Cramping/Fever Stop: 12/15/18 19:37 Last Admin: 11/15/18 21:17 Dose: 600 mg Documented by: Oxycodone/Acetaminophen (Percocet 5mg/325mg) 1 tab PO Q4H PRN PRN Reason: Pain not relieved by... Stop: 11/29/18 19:37 Last Admin: 11/15/18 23:44 Dose: 1 tab Documented by: Prenat Multivit/[place]/Iron/Folic Ac ( Vitamin) 1 tab PO QAM [facility] Stop: 12/16/18 08:59 <Ally Wolf MD - Last Filed: 11/16/18 07:09> Co-Signing Physician Notes I have examined the patient and agree with the resident note above. Resident Activity Tracking <Latrell Aden DO - Last Filed: 11/16/18 06:25> Resident Involvement: Resident Care Provided Care Provided: OB Delivery
[2018-11-16 07:06] LABS: Hematocrit (blood only) 30.7 % (37-47); Hemoglobin 10.4 g/dL (12.0-16.0); Mean Corpuscular Hgb Conc 33.9 g/dL (32-36); Mean Platelet Volume 12.7 fL (7.4-10.4); Platelet Count 169 K/uL (130-400); RDW Coefficient of Variation 13.7 % (11.5-14.5); RDW Standard Deviation 44.6 fL (36.4-46.3); Red Blood Count 3.45 M/uL (4.2-5.4); White Blood Count 12.85 K/uL (4.8-10.8)
[2018-11-16] MEDS: OXYCODONE/ACETAMINOPHEN 5mg/325mg TAB PO PRN ×2 (08:44→18:04)
[2018-11-16] MEDS: PRENATAL VITAMIN 1 TAB PO SCH (08:44)
[2018-11-16] MEDS: IBUPROFEN 600 MG TAB PO PRN ×2 (08:45→16:32)
[2018-11-17] MEDS: IBUPROFEN 600 MG TAB PO PRN (04:10)
[2018-11-17] MEDS: PRENATAL VITAMIN 1 TAB PO SCH (09:23)
--- NOTE | 2018-11-17 09:45 | Obstetrical Progress Note ---
Date of Service November 17, 2018 Assessment & Plan (1) (spontaneous vaginal delivery): PPD#2 doing well. Discussed discharge instructions. She will call her psychologist and make an appointment within the next few weeks. She is not really wanting to restart on [place], but I discussed with her the increased risk of depression given her psychiatric history. She is agreeable, and will call to make the appointment. Followup in office in 6w. Subjective PPD#2 doing well. No complaints. Has history of manic disorder, was previously taking lithium. Sees psychology group at [facility] in [place]. No current s/s depression - denies suicidal/homicidal/infanticidal ideations. Ambulating, eating, drinking, well. Moderate lochia. Physical Exam Vital Signs (Past 24 Hours): Last Vital Signs Temp 36.6 C 11/17/18 01:15 Pulse 95 H 11/17/18 01:15 Resp 20 11/17/18 01:15 BP 122/72 11/17/18 01:15 Pulse Ox 98 11/17/18 01:15 Physical Exam: Gen: AAOx3 NAD CV: RRR L: CTAB Abd: soft, NTTP. fundus firm Ext: no edema
== END 2018-11-17 15:08 | disposition home or self-care (01) | DRG 768 ==
LOC: 4S1 05:19 → EDSTATUS 07:30 → 4S2 22:51

== ENCOUNTER 2023-11-12 11:36 | Inpatient (IN) ==
--- NOTE | 2023-11-12 13:55 | History & Physical Report ---
Date of Service November 12, 2023 Assessment & Plan (1) Hydrocephal fetus-unspec: (2) Gestational diabetes: Plan 28 yo at 37 3/7 wga presents w/ back pain and prolonged monitoring VSS Fetus cat 1- initially very active and borderline tachy, now settled Back pain - heat pack keeping it at bay, pt initially declined tylenol as doesn't usually do much for her but accepts now. SVE for me is about 2cm, ?early labor. Will continue to monitor and recheck in a few hours History of Present Illness Chief Complaint: back pain Primary Care Provider: Shamir Guajardo MD 28 yo at 37 3/7 wga presents from office w/ c/o back pain. Seen for matias/acute due to back pain and missed last visit due to flu. Has had back pain and presurre on and off throughout , today wa worse and has increasing pain q3-5min. Put on NST at office and noted tachy so sent for further monitoring. +FM; denies LOF, VB. Hard to tell if conrad. Was FT in office PNI: GDM Borderline ventriculomegaly Short int Medical marijuana use Allergies Allergy/AdvReac Type Severity Reaction Status Date / Time adhesive tape Allergy Mild SKIN Verified 11/12/23 10:25 SENSITIVE TO TAPE latex Allergy Mild Itchiness Verified 11/12/23 10:25 strawberry Allergy Mild Rash Verified 11/12/23 10:25 Penicillins AdvReac Severe Vomiting Verified 11/12/23 10:25 METAL Allergy Intermediate SKIN Uncoded 11/12/23 10:25 RASH-WITH JEWELRY munoz peppers Allergy Gastrointestinal Uncoded 11/12/23 10:25 Upset Home Medications Medication Instructions Recorded Confirmed Type acetaminophen 500 mg tablet 500 - 1,000 mg PO Q6H PRN Pain 12/23/20 11/12/23 History prenat.vits,hansel,rue-tsch-nirfd 1 tab PO DAILY 04/26/21 11/12/23 History Medical Marijuanna 1 ea PO DAILY PRN .pain/anx 12/12/21 11/12/23 History ondansetron HCl 4 mg tablet 4 mg PO Q8H PRN nausea and 05/08/23 11/12/23 Rx vomiting 5 days #30 tabs acetone (urine) test (Ketone Urine #50 ea 07/24/23 11/12/23 Rx Test strips) blood sugar diagnostic (OneTouch #150 ea 07/24/23 11/12/23 Rx Verio test strips) blood-glucose meter (OneTouch #1 ea 07/24/23 11/12/23 Rx Verio Reflect Meter) lancets 33 gauge (OneTouch Delica #150 ea 07/24/23 11/12/23 Rx Plus Lancet) Patient History Medical History Acid reflux Bipolar disorder Borderline personality disorder Depression with anxiety (~11/05/10) History of epidural anesthesia Medical marijuana use Migraine Post traumatic stress disorder Varicella vaccination Surgical History History of dilatation and curettage History of facial surgery [place] teeth removed Family History Mother No problems noted. Other Breast cancer Cancer No family history of adverse response to anesthesia Denies family history of Ovarian cancer Colorectal cancer Social History (Updated 11/12/23 @ 11:59 by Kristy George RN) Smoking Status: Never smoker Second Hand Exposure: No; Do You Dip or Chew Tobacco: No; Hx Alcohol Use: No Hx Substance Use: Yes Prescribed Medications: Marijuana Prescribed Medications Comment: states she has a medical marijuana card Last Used Substance: Hours (ago) Last Used Substance Other:: used last night 11/10 - states she has medical card Preferred Language: [place] Citizen Communication Ability: Effective Project Facilitator Required: No Beliefs That Will Affect Care: None marital status: marital status details: Cheng Saldana(28) [phone] Current Living Situation: Spouse Current Living Situation Comment: lives with and 3 boys age 1, 4, and 7 current occupational status: unemployed current occupation: homemaker Other Information That Helps Us Care for You: No Feels Safe at Home: Yes Safety Concerns: Feels Safe At This Time Assistive Devices: Glasses Assistive Devices Comment: glasses with patient Physical Exam Genitourinary: Manual OB Exam: + cervical dilation 2 cm, + cervical effacement 30% and + station -2 OB Exam Monitor Tracing: + external FHT monitor used, + external uterine monitor used (irritability seen) and + category I (135-140/mod/+accel/-decel) Results & Data Vital Signs (Past 12 Hours) Vital Signs Temp Pulse Resp BP 11/12/23 12:30 18 11/12/23 12:30 18 11/12/23 12:00 18 11/12/23 12:00 97.5 F L 18 11/12/23 11:56 101 H 107/67 11/12/23 11:49 97.5 F L 18 Laboratory Results OB Labs: Blood Type O Positive 05/21/23 Antibody Screen NEGATIVE 05/21/23 Hemoglobin 12.9 g/dl (12.0-16.0) 05/21/23 Hematocrit 36.0 % (37.0-47.0) L 05/21/23 Mean Corpuscular Volume 84.3 fL (80.0-100.0) 05/21/23 Platelet Count 295 K/uL (130-400) 05/21/23 Rubella IgG Antibody Immune (Immune) 05/21/23 Rapid Plasma Reagin Nonreactive (Nonreactive) 05/21/23 Hepatitis B Surface Antigen Neg (Neg) 05/03/21 Hepatitis B Surface Antigen. NON-REACTIVE (NON-REACTIVE) 05/21/23 Hepatitis C Antibody (EIA) NON-REACTIVE (NON-REACTIVE) 05/21/23 HIV (1&2) Ab and P24 Ag, 4th Gener Neg (Neg) 05/03/21 HIV (1&2) Ag and Ab Confirmation NON-REACTIVE (NON-REACTIVE) 05/21/23 Glucose 1 Hour 50 gm Load 134 mg/dl (70-130) H 02/13/22 OB Optional Labs: Chlamydia trachomatis RNA Not Detected (NotDetected) 05/08/23 Neisseria gonorrhoeae RNA Not Detected (NotDetected) 05/08/23 GBS P low risk cfdna Diagnostic Findings 10/26 EFW 67%, post placenta. eccentric Coding Level of Care Code None Diagnoses Hydrocephal fetus-unspec O33.6XX0 Gestational diabetes O24.419
[2023-11-12] MEDS: ACETAMINOPHEN 500 MG TAB PO PRN (13:59)
--- NOTE | 2023-11-12 16:44 | Obstetrical Progress Note ---
Date of Service November 12, 2023 Assessment & Plan (1) Hydrocephal fetus-unspec: (2) Gestational diabetes: Plan 28 yo at 37 3/7 wga presents w/ back pain and prolonged monitoring VSS Fetus cat 1 Back pain - SVE 2-3, however head no longer palpated either. Was vertex at first check and at matias visit earlier today. BSUS confirm breech presentation. Not sure if cervix feels different because no longer cephalic or truly early labor. Hard to see ctx but palpates soft. Will plan to recheck now that has changed position Subjective Re-evaluated, back pain a little worse Physical Exam Genitourinary: Manual OB Exam: + cervical dilation (2-3), + cervical effacement 30% and + station -2 OB Exam Monitor Tracing: + external FHT monitor used, + external uterine monitor used (irritability seen) and + category I (135-140/mod/+accel/-decel) Results & Data Vital Signs (Past 12 Hours) Vital Signs Temp Pulse Resp BP 11/12/23 14:30 18 11/12/23 14:30 18 11/12/23 14:00 18 11/12/23 14:00 18 11/12/23 13:26 18 11/12/23 13:26 18 11/12/23 13:00 18 11/12/23 13:00 18 11/12/23 12:30 18 11/12/23 12:30 18 11/12/23 12:00 18 11/12/23 12:00 97.5 F L 18 11/12/23 11:56 101 H 107/67 11/12/23 11:49 97.5 F L 18 PG Care Time/CCT Total # of Minutes Spent Total Time Spent with Patient: Total time spent is greater than 50% in coordination of care (as documented) at patient's floor/unit and/or counseling patient: Coding Level of Care Code None Diagnoses Hydrocephal fetus-unspec O33.6XX0 Gestational diabetes O24.419
[2023-11-12] MEDS ORDERED: fentaNYL citrate PF 100 MCG/2 ML VIAL ONE (17:20)
[2023-11-12] MEDS ORDERED: MoRPHine SULFATE PF 1 MG/ML 10 ML AMP/VIAL ONE (17:20)
--- NOTE | 2023-11-12 17:33 | Anesthesiology Consultation ---
Date of Service November 12, 2023 Assessment & Plan Chart Review Chart Review: Acceptable Risk for Surgery Consults Requested none ASA ASA2E Proposed Anesthesia Anesthesia Type: Spinal Risk / Benefits Reviewed With: PT / POA / Parent / Guardian, Accepts Plan and Informed Consent Obtained History Height/Weight Height: 5 ft Weight: 81.193 kg Allergies Allergy/AdvReac Type Severity Reaction Status Date / Time adhesive tape Allergy Mild SKIN Verified 11/12/23 10:25 SENSITIVE TO TAPE latex Allergy Mild Itchiness Verified 11/12/23 10:25 strawberry Allergy Mild Rash Verified 11/12/23 10:25 Penicillins AdvReac Severe Vomiting Verified 11/12/23 10:25 METAL Allergy Intermediate SKIN Uncoded 11/12/23 10:25 RASH-WITH JEWELRY munoz peppers Allergy Gastrointestinal Uncoded 11/12/23 10:25 Upset Medications Home Medications Medication Instructions Recorded Confirmed Last Taken acetaminophen 500 mg tablet 500 - 1,000 mg PO Q6H PRN Pain 12/23/20 11/12/23 05/17/21 15:00 prenat.vits,hansel,qjl-qndg-pduec 1 tab PO DAILY 04/26/21 11/12/23 Unknown Medical Marijuanna 1 ea PO DAILY PRN .pain/anx 12/12/21 11/12/23 11/11/23 ondansetron HCl 4 mg tablet 4 mg PO Q8H PRN nausea and 05/08/23 11/12/23 Unknown vomiting 5 days #30 tabs acetone (urine) test (Ketone Urine #50 ea 07/24/23 11/12/23 Unknown Test strips) blood sugar diagnostic (OneTouch #150 ea 07/24/23 11/12/23 Unknown Verio test strips) blood-glucose meter (OneTouch #1 ea 07/24/23 11/12/23 Unknown Verio Reflect Meter) lancets 33 gauge (OneTouch Delica #150 ea 07/24/23 11/12/23 Unknown Plus Lancet) Active Medications Generic Name Dose Route Start Last Admin Trade Name Freq PRN Reason Stop Dose Admin Acetaminophen 1,000 mg 11/12/23 13:53 11/12/23 13:59 Acetaminophen 500 Mg Tab PO 12/12/23 13:52 1,000 mg Q8H PRN Administration As Needed for Fever or Pain Past Medical History Medical History Varicella vaccination Medical marijuana use Borderline personality disorder Acid reflux DURING Post traumatic stress disorder Bipolar disorder History of epidural anesthesia VAGINAL DELIVERY Migraine Depression with anxiety (~11/05/10) Exercise / Class Metabolic Activity II 4-5 Yardwork/Stairs/Walk up hill Past Family History Family History Mother No problems noted. Other Breast cancer Cancer No family history of adverse response to anesthesia Denies family history of Ovarian cancer Colorectal cancer Past Surgical History Surgical History History of dilatation and curettage X 3 [place] teeth removed History of facial surgery X 3 (BIRTHMARK REMOVAL) Past Anesthesia History No Hx of Anesthesia Complications and No Family Hx of Anesthesia Complications History of PONV No Hx of PONV and No Hx of Motion Sickness Social History Smoking Status: Never smoker Do You Dip or Chew Tobacco: No Hx Alcohol Use: No Alcohol type: hard liquor alcohol intake frequency: a few times a month Hx Substance Use: Yes substance use type: marijuana Last Used Substance: Hours (ago) Last Used Substance Other:: used last night 11/10 - states she has medical card Physical Exam Vital Signs Last Vital Signs Temp 97.5 F L 11/12/23 12:00 Pulse 101 H 11/12/23 11:56 Resp 18 11/12/23 14:30 BP 107/67 11/12/23 11:56 ENMT Mouth: no dentition abnormality Thyromental Distance: > or= 3.5 Finger Breadths Mallampati Class: II Neck normal visual inspection Respiratory normal respiratory effort Auscultation: lungs clear to auscultation bilaterally Cardiovascular Rate/Rhythm: regular rate and regular rhythm
[2023-11-12 17:43] LABS: Hematocrit (blood only) 33.7 % (37.0-47.0); Hemoglobin 11.5 g/dl (12.0-16.0); Mean Corpuscular Hemoglobin 28.9 pg (25.0-34.0); Mean Corpuscular Hgb Conc 34.1 g/dL (32.0-36.0); Mean Corpuscular Volume 84.7 fL (80.0-100.0); Mean Platelet Volume 11.4 fL (9.4-12.4); Platelet Count 253 K/uL (130-400); Red Blood Count 3.98 M/uL (4.20-5.40)
--- NOTE | 2023-11-12 17:45 | Labor Progress Brief Note ---
Date of Service November 12, 2023 Subjective Re-evaluated due to worsening pain Assessment & Plan (1) SROM (spontaneous rupture of membranes): (2) Gestational diabetes: (3) Medical marijuana use: (4) Hydrocephal fetus-unspec: Plan 28 yo now in labor and breech Due to breech presentation and apparently now in labor, will move towards CS. Discussed indications, risks, benefits, alternatives with risks including infection, bleeding, injury to adjacent structures (bowel, bladder, ureters, blood vessels, nerves, baby), possible need for blood transfusion and/or life saving hysterectomy, VTE. Consent reviewed in detail w/ pt and signed after all questions answered to her satisfaction. Plan for ancef and azithro Physical Exam Genitourinary: OB Exam Abdomen: + breech Manual OB Exam: + cervical dilation 4 cm, + cervical effacement 60% and + station -2 OB Exam Monitor Tracing: + external FHT monitor used, + external uterine monitor used and + category I Results & Data Vital Signs (Past 12 Hours) Vital Signs Temp Pulse Resp BP 11/12/23 14:30 18 11/12/23 14:30 18 11/12/23 14:00 18 11/12/23 14:00 18 11/12/23 13:26 18 11/12/23 13:26 18 11/12/23 13:00 18 11/12/23 13:00 18 11/12/23 12:30 18 11/12/23 12:30 18 11/12/23 12:00 18 11/12/23 12:00 97.5 F L 18 11/12/23 11:56 101 H 107/67 11/12/23 11:49 97.5 F L 18 Coding Level of Care Code None Diagnoses SROM (spontaneous rupture of membranes) Gestational diabetes O24.419 Medical marijuana use Z79.899 Hydrocephal fetus-unspec O33.6XX0
[2023-11-12] MEDS: LACTATED RINGER'S 1,000 ML IV SCH (17:47)
[2023-11-12] MEDS ORDERED: CITRIC ACID/SODIUM CITRATE 15 ML UDC ONE (17:54)
[2023-11-12] MEDS ORDERED: AZITHROMYCIN 500 MG in DEXTROSE 5% 250 ML IV SCH (18:00)
[2023-11-12] MEDS: CITRIC ACID/SODIUM CITRATE 15 ML UDC PO SCH (18:05)
[2023-11-12] MEDS: ceFAZolin 2000MG 2,000 MG/15 ML SYR IV SCH (18:06)
[2023-11-12] MEDS ORDERED: ePHEDrine sulfate 50 MG/ML AMP IV PRN (18:19)
[2023-11-12] MEDS ORDERED: MEPERIDINE HCL 25 MG/ML CARP/VIAL IV PRN (18:19)
[2023-11-12] MEDS ORDERED: NALBUPHINE HCL 5 MG in SYRINGE 0 ML IV PRN (18:19)
[2023-11-12] MEDS ORDERED: LACTATED RINGER'S 500 ML IV PRN (18:19)
[2023-11-12] MEDS ORDERED: MoRPHine SULFATE PF 1 MG/ML 10 ML AMP/VIAL INT SPINAL ONE (18:19)
[2023-11-12] MEDS ORDERED: diphenhydrAMINE 50 MG/ML VIAL IV PRN (18:19)
[2023-11-12] MEDS ORDERED: NALOXONE HCL 0.4 MG/1 ML VIAL/CARP IV PRN (18:19)
[2023-11-12] MEDS ORDERED: NALOXONE HCL 0.08 MG in SYRINGE 1.8 ML IV PRN (18:19)
[2023-11-12] MEDS ORDERED: NALOXONE HCL 1 MG in SODIUM CHLORIDE 0.9% 1,000 ML IV PRN (18:19)
[2023-11-12] MEDS ORDERED: PHENYLEPHRINE 100MCG/ML 10ML SYR IV ONE (18:29)
[2023-11-12] MEDS ORDERED: OXYTOCIN 10 UNITS/ML VIAL ONE (18:29)
[2023-11-12] MEDS ORDERED: ONDANSETRON INJ 2 MG/ML 2 ML VIAL ONE (18:29)
[2023-11-12] MEDS ORDERED: DC INTRASPINAL MORPHINE SCH (18:30)
[2023-11-12] MEDS ORDERED: NO NARCOTICS OR SEDATIVES SCH (18:30)
[2023-11-12] MEDS ORDERED: SODIUM CHLORIDE 0.9% 1,000 ML IV SCH (18:30)
[2023-11-12] MEDS ORDERED: BENZOCAINE 20% SPRY 85 APPLN/85 GM CAN EXT PRN (19:07)
[2023-11-12] MEDS ORDERED: HYDROCORTISONE ACETATE 25 MG SUPP PR PRN (19:07)
[2023-11-12] MEDS ORDERED: MEPERIDINE HCL 50 MG/ML CARP IV PRN (19:07)
[2023-11-12] MEDS ORDERED: ONDANSETRON INJ 2 MG/ML 2 ML VIAL IV PRN (19:07)
[2023-11-12] MEDS ORDERED: LACTATED RINGER'S 1,000 ML IV SCH (19:15)
--- NOTE | 2023-11-12 19:22 | Operative Report ---
PG Post Operative Report Pre & Post Diagnosis Operation Date: 11/12/23 18:00 Single intrauterine at 37 and 3/7 wks Labor Breech GDM I identified the patient and participated in the time-out.: Yes Procedure Operation Date: 11/12/23 18:00 Actual Procedures p Primary Low Transverse Section. Live female child at 1834 - Jacinta Currie MD Surgeon Jacinta Currie MD Devil Tender MD Tia Estimated Blood Loss 639 (QBL) Findings Consistent with Post-Op Diagnosis Normal appearing uterus, bilateral fallopian tubes and ovaries. Viable female weighing 6lb 12oz with APGARs of 7 and 8 Fluids 1300cc crystalloid, UOP 150cc by lamar catheter Specimens Placenta, cord blood, cord gases Drains Lamar draining clear urine Anesthesia Type Spinal Complications none Disposition Accompanied Patient To Recovery: Yes Disposition: L&D Indications 28 yo at 37 3/7 wga presented for prolonged monitoring due to tachycardia noted on NST as well as backpain. She was checked in the office and found to be fingertip. During her monitoring on L&D, tachycardia resolved to category 1 tracing. She was rechecked and found to be 2cm however did not appear to be conrad on the monitor and so planned to regrace. Two hours later she was rechecked and approx 2-3cm however cervix was very anterior and head was no longer palpated. BSUS demonstrated breech presentation. It was unclear if contractions had increased on toco so plan was to recheck in an hour but then rapidly started conrad and rechecked, found to be 4cm and still breech on bsus so proceeded with delivery Description of Procedure The patient was taken to the operating room after consents were ensured. The patient was properly identified. Spinal anesthesia was obtained without difficulty. The patient was placed in a dorsal supine position with left lateral tilt, then prepped and draped in normal sterile fashion. Surgical time out was performed. Antibiotics were given for prophylaxis. Anesthesia was tested to ensure adequate surgical levels. Pfannenstiel skin incision was performed and carried down to the underlying fascia with a knife. The fascia was then nicked in the midline and extended laterally with pickshawn and Guo scissors. Superior portion of the fascia was grasped with Kochers x2 and elevated off the underlying rectus muscles using blunt dissection. Inferior portion of the fascia was then grasped with Kristian clamps x2 and also elevated off the underlying muscles with blunt dissection. Midline was identified. The peritoneum was then entered and extended to provide adequate room for delivery of baby. A hand was inserted into the abdomen, uterus was noted to be clear of adhesions. Bladder blade was inserted, bladder flap was created in the usual fashion. A low transverse uterine incision was made in the uterus and extended bluntly in a superior to inferior fashion. Amniotomy was made with clear fluid at the time of rupture. Upon entry into uterus, hand was palpated and it was determined that fetus was now transverse back up. breech was grasped and able to be delivered through the hysterotomy in an atraumatic fashion. Torso was delivered to the level of the shoulders. Right arm was swept atraumatically across the chest. Left arm and head delivered spontanoeusly. Nose and mouth were bulb suctioned on the surgical field. The cord was double clamped and cut, baby was handed off to awaiting pediatrics staff. Cord segment and blood were obtained. Placenta was then expressed from the uterus. The uterus was exteriorized. Several passes were made inside the uterus to remove the remaining membranes. Attention was then turned to the hysterotomy, which was then closed with a running locked suture of 0 Vicryl on a CTX needle. An imbricating layer was then performed using 0-Monocryl. There was noted to be good hemostasis. The posterior cul-de-sac was then inspected and cleaned of clot and debris. The hysterotomy was again inspected and noted to be hemostatic. The uterus was returned to the abdomen. Area of bleeding in the middle of the hysterotomy was secured using a figure of eight stitch. The right and left pericolic gutters were cleaned of all clot and debris. The hysterotomy was again noted to be hemostatic. Space of Retzius was noted to be hemostatic. The fascia was then closed with a running suture of 0 Vicryl on a CT1 needle. Subcutaneous tissue was copiously irrigated and noted to be hemostatic. Subcutaneous tissue was re- approximated using 2-0 plain gut. The skin was then closed with a running suture of 3-0 Monocryl in a subcuticular fashion. At termination of the pr ocedure, fundal pressure was applied and a moderate amount of lochia was expressed. Pressure dressing was applied to the patient. She tolerated the procedure well. All sponge, needle, instrument counts were correct x 2. I attest to the content of the Intraoperative Record and any orders documented therein. Any exceptions are noted below. OB Procedure Charges 17137
[2023-11-12] MEDS: PROMETHAZINE HCL 6.25 MG in SODIUM CHLORIDE 0.9% 50 ML IV STA (19:46)
--- NOTE | 2023-11-12 19:56 | Anesthesiology Progress Note ---
Date of Service November 12, 2023 Anesthesia Post Procedure Vital Signs Vital Signs: Temp Pulse Resp BP Pulse Ox 11/12/23 19:51 83 100 11/12/23 19:46 83 100 11/12/23 19:41 79 100 11/12/23 19:36 84 100 11/12/23 19:35 78 196/123 H 11/12/23 19:31 82 100 11/12/23 19:26 119 H 100 11/12/23 19:21 79 100 11/12/23 19:16 72 100 11/12/23 19:15 184 H 148/89 H 11/12/23 14:30 18 11/12/23 14:30 18 11/12/23 14:00 18 11/12/23 14:00 18 11/12/23 13:26 18 11/12/23 13:26 18 11/12/23 13:00 18 11/12/23 13:00 18 11/12/23 12:30 18 11/12/23 12:30 18 11/12/23 12:00 18 11/12/23 12:00 97.5 F L 18 11/12/23 11:56 101 H 107/67 11/12/23 11:49 97.5 F L 18 Transfer of Care Handoff Completed per policy Notes Mental Status: alert / awake / arousable and participated in evaluation Patient Amnestic to Procedure: Yes Nausea / Vomiting: adequately controlled Pain: adequately controlled Airway Patency, RR, SpO2: stable & adequate BP & HR: stable & adequate Hydration State: stable & adequate Neuraxial Anesthesia: was administered and sensory block is resolving Anesthetic Complications: no major complications apparent and Pt Satisfied with anesthetic care
[2023-11-12 20:57] LABS: Base Excess Cord Arterial Bld -6.1 mEq/L (-9-1.8); CO2 Cord Arterial Blood 47 mmHg (39.1-73.5); Cord Venous Blood HCO3 24 mmol/L (18.4-26.8); Cord Venous Blood PCO2 43 mmHg (30.4-57.2); Cord Venous Blood PO2 < 20 mmHg (14.1-43.3); Cord Venous Blood pH 7.35 (7.20-7.44); HCO3 Cord Arterial Blood 21 mmol/L (19.7-28.5); O2 Saturation Cord Venous Bld < 60.0 % (<68); Oxygen Sat Cord Arterial Blood < 60.0 % (<60); PO2 Cord Arterial Blood < 20 mmHg (4.1-31.7); pH Cord Arterial Blood 7.26 (7.1-7.38)
[2023-11-12] MEDS: DIPHTHER/TETAN/PERTUS Vaccine (Tdap, Adol/Adult) 0.5mL IM ONE (21:19)
[2023-11-12] MEDS: SIMETHICONE 80 MG CHEW PO SCH (21:27)
[2023-11-12] MEDS: KETOROLAC 30 MG/ML VIAL IV PRN (21:27)
[2023-11-12] MEDS: DOCUSATE SODIUM 100 MG CAP PO SCH (21:27)
[2023-11-12] MEDS: OXYTOCIN 20 UNITS/LR 1,002 ML IV SCH (21:27)
[2023-11-12] MEDS: ONDANSETRON INJ 2 MG/ML 2 ML VIAL IV PRN (23:50)
[2023-11-13] MEDS: PROMETHAZINE HCL 25 MG in SODIUM CHLORIDE 0.9% 50 ML IV PRN (00:43)
[2023-11-13] MEDS ORDERED: DROPERIDOL 5 MG/2 ML VIAL IV STA (00:57)
[2023-11-13] MEDS: PROMETHAZINE HCL 6.25 MG in SODIUM CHLORIDE 0.9% 50 ML IV STA (01:18)
--- NOTE | 2023-11-13 06:03 | Obstetrical Progress Note ---
Date of Service <Darryl García MD - Last Filed: 11/13/23 07:04> November 13, 2023 Assessment & Plan <Darryl García MD - Last Filed: 11/13/23 07:04> (1) S/P : Plan 28 yo , status post on 11/12/23 - Pt doing well clinically. Feels better this morning after N/V last night following her . Eating a bit more, voiding w/ Lamar, not ambulating/standing w/out complaint. Pain well controlled with PRN pain meds. - Routine care -- OOB, ambulation, diet progression as tolerated Vital Signs reviewed and WNL. (Tmax at 36.8) WBC count, 13.5 before delivery (11/13/23) Hemoglobin Reviewed. 11.5 (date), pending (today). Blood Type: O+, GBS pending, Rubella Immune. Encourage ambulation, monitor and control pain with Motrin PRN, resume regular diet, monitor lochia. Breast feeding encouraged and is planned. After discharge will have 6 week follow-up with Dr. Currie. <Jacinta Currie MD - Last Filed: 11/13/23 07:07> (1) S/P : Subjective <Darryl García MD - Last Filed: 11/13/23 07:04> Ambulation: limited ambulation Voiding: lamar catheter in place Passing Gas:: Yes Diet Tolerance:: nausea/vomiting (held down some [place] til now) Lochia:: Small Feeding Type:: breast feeding Current Pain Level(1-10): 4 (dull ache in incision area) Constitutional: + fatigue; no fever, no chills or no weakness Eyes: no diplopia or no worsening vision Respiratory: + cough; no chest congestion or no dyspnea Cardiovascular: no chest pain or no palpitations Breast: no breast pain Gastrointestinal: + abdominal pain, + nausea and + vomiting; no diarrhea/loose stools Genitourinary (female): no dysuria Neurologic: no tingling, no numbness, no headache(s) or no confusion Physical Exam <Darryl García MD - Last Filed: 11/13/23 07:04> Constitutional WD/WN, vitals as above Respiratory normal respiratory effort, lungs clear to auscultation Cardiovascular RRR, no murmur, no edema Extremities: normal capillary refill; no calf tenderness Gastrointestinal (Abdomen) Inspection/Auscultation: abdomen normal to inspection, normal bowel sounds and + abdominal surgical incision (non edematous, non-erythematous, intact) Psychiatric A+Ox3, euthymic affect Results & Data <Darryl García MD - Last Filed: 11/13/23 07:04> Vital Signs (Past 12 Hours) Vital Signs Temp Pulse Pulse Resp BP BP Pulse Ox 11/13/23 05:17 18 98 11/13/23 04:03 18 100 11/13/23 03:00 36.8 C 90 18 103/69 98 11/13/23 03:00 18 98 11/13/23 02:04 17 95 11/13/23 01:14 18 98 11/13/23 00:35 18 99 11/12/23 23:10 18 99 11/12/23 22:48 36.5 C 82 18 109/69 100 11/12/23 22:20 18 100 11/12/23 21:27 88 98 11/12/23 21:26 69 99/54 L 11/12/23 21:24 68 106/64 11/12/23 21:21 92 H 100 11/12/23 21:16 95 11/12/23 21:16 86 11/12/23 21:16 70 109/61 11/12/23 21:15 36.7 C 18 11/12/23 21:12 84 91 11/12/23 21:11 72 98 11/12/23 21:06 90 112/58 L 98 11/12/23 21:01 83 97 11/12/23 20:56 76 113/61 99 11/12/23 20:51 87 99 11/12/23 20:46 97 11/12/23 20:46 87 11/12/23 20:46 80 106/57 L 11/12/23 20:45 18 11/12/23 20:41 83 99 11/12/23 20:36 84 110/59 L 95 11/12/23 20:31 86 98 11/12/23 20:27 129 H 100/60 11/12/23 20:26 89 100 11/12/23 20:21 79 100 11/12/23 20:19 82 108/64 11/12/23 20:16 111 H 100 11/12/23 20:15 18 11/12/23 20:15 18 11/12/23 20:11 77 99 11/12/23 20:06 96 11/12/23 20:06 76 11/12/23 20:06 82 99/59 L 11/12/23 20:05 18 11/12/23 20:02 78 94 11/12/23 20:01 84 95 11/12/23 19:59 87 107/61 11/12/23 19:56 79 99 11/12/23 19:55 18 11/12/23 19:51 83 100 11/12/23 19:46 83 100 11/12/23 19:45 18 11/12/23 19:41 79 100 11/12/23 19:36 84 100 11/12/23 19:35 84 110/59 L 95 11/12/23 19:35 78 196/123 H 11/12/23 19:31 82 100 11/12/23 19:26 119 H 100 11/12/23 19:25 18 11/12/23 19:21 79 100 11/12/23 19:16 72 100 11/12/23 19:15 11/12/23 19:15 36.5 C 18 11/12/23 19:15 184 H 148/89 H O2 Del Method 11/13/23 05:17 11/13/23 04:03 11/13/23 03:00 Room Air 11/13/23 03:00 11/13/23 02:04 11/13/23 01:14 11/13/23 00:35 11/12/23 23:10 11/12/23 22:48 Room Air 11/12/23 22:20 11/12/23 21:27 11/12/23 21:26 11/12/23 21:24 11/12/23 21:21 11/12/23 21:16 11/12/23 21:16 11/12/23 21:16 11/12/23 21:15 11/12/23 21:12 11/12/23 21:11 11/12/23 21:06 11/12/23 21:01 11/12/23 20:56 11/12/23 20:51 11/12/23 20:46 11/12/23 20:46 11/12/23 20:46 11/12/23 20:45 11/12/23 20:41 11/12/23 20:36 11/12/23 20:31 11/12/23 20:27 11/12/23 20:26 11/12/23 20:21 11/12/23 20:19 11/12/23 20:16 11/12/23 20:15 11/12/23 20:15 11/12/23 20:11 11/12/23 20:06 11/12/23 20:06 11/12/23 20:06 11/12/23 20:05 11/12/23 20:02 11/12/23 20:01 11/12/23 19:59 11/12/23 19:56 11/12/23 19:55 11/12/23 19:51 11/12/23 19:46 11/12/23 19:45 11/12/23 19:41 11/12/23 19:36 11/12/23 19:35 11/12/23 19:35 11/12/23 19:31 11/12/23 19:26 11/12/23 19:25 11/12/23 19:21 11/12/23 19:16 11/12/23 19:15 Room Air 11/12/23 19:15 11/12/23 19:15 Supervising Physician <Jacinta Currie MD - Last Filed: 11/13/23 07:07> Co-Signing Physician Notes Resident Physician Supervision Note: I interviewed and examined the patient. Discussed with Dr. García and agree with findings and plan as documented in the note. Any exceptions or clarifications are listed here: POD1 s/p pLTCS for labor/breech. n/v starting to improve a few hours ago. VSS, exam benign and wnl. Dressing c/d/i. Continue rout care, needs to void today and ambulate. Abd binder ordered Documented By: Jacinta Currie MD
[2023-11-13] MEDS: PRENATAL VITAMIN 1 TAB PO SCH (08:26)
[2023-11-13] MEDS: FERROUS SULFATE 325 MG TAB PO SCH (08:26)
[2023-11-13 08:55] LABS: Basophils # (auto) 0.06 K/uL (0.00-0.20); Basophils % (auto) 0.4 %; Eosinophils # (auto) 0.07 K/uL (0.00-0.50); Eosinophils % (auto) 0.5 %; Hematocrit (blood only) 28.9 % (37.0-47.0); Immature Granulocytes # (auto) 0.05 K/uL (0.01-0.20); Immature Granulocytes % (auto) 0.4 %; Lymphocytes # (auto) 2.21 K/uL (1.20-3.40); Lymphocytes % (auto) 16.5 %; Mean Corpuscular Hemoglobin 29.7 pg (25.0-34.0); Mean Corpuscular Hgb Conc 34.6 g/dL (32.0-36.0); Mean Corpuscular Volume 85.8 fL (80.0-100.0); Monocytes # (auto) 1.09 K/uL (0.11-0.59); Monocytes % (auto) 8.1 %; Neutrophils # (auto) 9.91 K/uL (1.40-6.50); Neutrophils % (auto) 74.1 %; Platelet Count 213 K/uL (130-400); RDW Coefficient of Variation 13.1 % (11.5-14.5); RDW Standard Deviation 40.4 fL (36.4-46.3); Red Blood Count 3.37 M/uL (4.20-5.40); White Blood Count 13.39 K/ul (4.8-10.8)
[2023-11-13] MEDS ORDERED: KETOROLAC 30 MG/ML VIAL IV PRN (12:19)
[2023-11-13] MEDS ORDERED: diphenhydrAMINE 50 MG/ML VIAL IV PRN (12:19)
[2023-11-13] MEDS ORDERED: diphenhydrAMINE Capsule 25 MG CAP PO PRN (12:19)
[2023-11-13] MEDS: oxyCODONE/ACETAMINOPHEN 5mg/325mg TAB PO PRN (12:46)
[2023-11-13] MEDS: IBUPROFEN 600 MG TAB PO PRN (16:05)
[2023-11-13] MEDS: bisacodyL 5 MG TABEC PO SCH (20:13)
--- NOTE | 2023-11-14 06:02 | Obstetrical Progress Note ---
Date of Service <Darryl García MD - Last Filed: 11/14/23 07:43> November 14, 2023 Assessment & Plan <Draryl García MD - Last Filed: 11/14/23 07:43> (1) S/P : Plan 28 yo , status post on 11/12/23 - Pt doing well clinically. Feels better this morning after N/V last night following her . Eating a bit more, voiding w/ [place], not ambulating/standing w/out complaint. Pain well controlled with PRN pain meds. - Routine care -- OOB, ambulation, diet progression as tolerated Vital Signs reviewed and WNL. (Tmax at 36.8) WBC count, 13.5 before delivery (11/13/23) Hemoglobin Reviewed. 11.5 (date), pending (today). Blood Type: O+, GBS pending, Rubella Immune. Encourage ambulation, monitor and control pain with Motrin PRN, resume regular diet, monitor lochia. Breast feeding encouraged and is planned. After discharge will have 6 week follow-up with Dr. Currie. <Jo-Ann Guillen MD, FACOG - Last Filed: 11/14/23 08:28> (1) S/P : Subjective <Darryl García MD - Last Filed: 11/14/23 07:43> Ambulation: ambulating normally Voiding: no voiding problems Passing Gas:: Yes Diet Tolerance:: regular diet Lochia:: Small Feeding Type:: breast feeding Current Pain Level(1-10): 7 (incision area, feels worst when standing/walking) Constitutional: + fatigue; no fever, no chills or no weakness Eyes: no diplopia or no worsening vision Respiratory: no cough, no chest congestion or no dyspnea Cardiovascular: no chest pain or no palpitations Breast: + breast pain (left sided tenderness due to poor latch) Gastrointestinal: no abdominal pain, no nausea, no vomiting or no diarrhea/loose stools Genitourinary (female): no dysuria Neurologic: no tingling, no numbness, no headache(s) or no confusion Physical Exam <Darryl García MD - Last Filed: 11/14/23 07:43> Constitutional WD/WN, vitals as above Respiratory normal respiratory effort, lungs clear to auscultation Cardiovascular RRR, no murmur, no edema Extremities: normal capillary refill; no calf tenderness Gastrointestinal (Abdomen) Inspection/Auscultation: abdomen normal to inspection, normal bowel sounds and + abdominal surgical incision (mildly edematous, non-erythematous, intact) Psychiatric A+Ox3, euthymic affect Results & Data <Darryl García MD - Last Filed: 11/14/23 07:43> Vital Signs (Past 12 Hours) Vital Signs Temp Pulse Resp BP O2 Del Method 11/13/23 23:35 36.9 C 83 18 109/76 Room Air Supervising Physician <Jo-Ann Guillen MD, FACOG - Last Filed: 11/14/23 08:28> Co-Signing Physician Notes Resident Physician Supervision Note: I interviewed and examined the patient. Discussed with Dr. García and agree with findings and plan as documented in the note. Any exceptions or clarifications are listed here: [None] Documented By: Jo-Ann Guillen MD, FACOG
[2023-11-14 06:48] LABS: Hematocrit (blood only) 30.1 % (37.0-47.0); Hemoglobin 10.2 g/dl (12.0-16.0)
[2023-11-14] MEDS: MAGNESIUM HYDROXIDE SUSP 30 ML UDC PO PRN (10:01)
[2023-11-14] MEDS: SENNA 8.6 MG TAB PO PRN (11:48)
[2023-11-14] MEDS ORDERED: bisacodyL 10 MG SUPP PR PRN (19:07)
--- NOTE | 2023-11-19 08:33 | Discharge Summary ---
Date of Service November 19, 2023 Admission HPI Per Admitting Provider 28 yo at 37 3/7 wga presents from office w/ c/o back pain. Seen for matias/acute due to back pain and missed last visit due to flu. Has had back pain and presurre on and off throughout , today wa worse and has increasing pain q3-5min. Put on NST at office and noted tachy so sent for further monitoring. +FM; denies LOF, VB. Hard to tell if conrad. Was FT in office PNI: GDM Borderline ventriculomegaly Short int Medical marijuana use Discharge Data Consultations 11/12/23 17:18 Consult Anesthesiology Stat Procedures Performed Operation Date: 11/12/23 18:00 Actual Procedures p Primary Section. Live female child at 1834 - Jacinta Currie MD Hospital Course (1) S/P : 28 yo at 37 3/7 wga presented for prolonged monitoring due to tachycardia noted on NST as well as backpain. She was checked in the office and found to be fingertip. During her monitoring on L&D, tachycardia resolved to category 1 tracing. She was rechecked and found to be 2cm however did not appear to be conrad on the monitor and so planned to regrace. Two hours later she was rechecked and approx 2-3cm however cervix was very anterior and head was no longer palpated. BSUS demonstrated breech presentation. It was unclear if contractions had increased on toco so plan was to recheck in an hour but then rapidly started conrad and rechecked, found to be 4cm and still breech on bsus so proceeded with delivery. See operative report for details. Post-op course uncomplicated and she was discharged home on POD2 Coding Level of Care Code None Diagnoses S/P Z98.891
== END 2023-11-14 13:15 | disposition home or self-care (01) | DRG 787 ==
LOC: OPB 11:36 → 4S1 11:42 → 4E2 22:12
DX: O99.324 Drug use complicating childbirth; O33.6XX0 Maternal care for disproportion due to hydrocephalic fetus, not applicable or unspecified; Z91.040 Latex allergy status; Z88.0 Allergy status to penicillin; O24.429 Gestational diabetes mellitus in childbirth, unspecified control; F12.90 Cannabis use, unspecified, uncomplicated; O32.1XX0 Maternal care for breech presentation, not applicable or unspecified; Z91.048 Other nonmedicinal substance allergy status; Z91.018 Allergy to other foods; Z3A.37 37 weeks gestation of pregnancy; Z37.0 Single live birth